=== PATIENT | male | born 1940 | race Caucasian/White ===

== ENCOUNTER 2019-03-06 13:49 | Outpatient (CLI) | payer MEDICARE, OTHER | END 2019-03-06 13:50 | disposition critical access hospital (66) | LOC: EMS 13:49 | PROVIDERS: ATTEND Surgery | DX: S09.90XA Unspecified injury of head, initial encounter (principal); R41.82 Altered mental status, unspecified; M54.2 Cervicalgia; W10.9XXA Fall (on) (from) unspecified stairs and steps, initial encounter | CPT/HCPCS: A0425; A0429 ==

== ENCOUNTER 2019-03-06 14:33 | Emergency (ER) | payer MEDICARE, OTHER ==
--- NOTE | 2019-03-06 15:18 | CT Report ---
Reason: fall, head injury Procedure Date: 03/06/2019 Accession Number: [id number] / [id number] Procedure: CT - HEAD WO CPT Code: FULL RESULT: EXAM: CT HEAD EXAM DATE: 03/06/2019 03:08 PM. CLINICAL HISTORY: 78-year-old male. Fall, head injury. COMPARISON: None. TECHNIQUE: Multiaxial CT images were obtained from the foramen magnum to the vertex. Reformats: Sagittal and coronal. IV contrast: None. In accordance with CT protocol optimization, one or more of the following dose reduction techniques were utilized for this exam: automated exposure control, adjustment of mA and/or KV based on patient size, or use of iterative reconstructive technique. FINDINGS: Parenchyma: No intraparenchymal hemorrhage. No evidence of mass, midline shift, or CT findings of acute infarction. Laurent-white differentiation is distinct. Diffuse chronic microangiopathic white matter changes are evident. Extraaxial Spaces: Normal for age. No subdural or epidural collections identified. Ventricles: The ventricles and cortical sulci are enlarged, consistent with age-related tissue loss. Sinuses and orbits: Status post bilateral lens replacement surgery. Imaged paranasal sinuses, orbits, and mastoids show no significant abnormality. Bones: No evidence of acute fracture. Large heterogeneous bony calvarial lesion in the right frontoparietal calvarium (series 3 image 29, series 5 image 26), nonspecific, may represent hemangioma. Recommend correlation with chronicity per patient history and prior imaging if available. Other: None. IMPRESSION: 1. Generalized age-related cortical atrophic changes without evidence of acute intracranial abnormality. 2. No evidence of acute fracture. Large heterogeneous bony calvarial lesion in the right frontoparietal calvarium (series 3 image 29, series 5 image 26), nonspecific, may represent hemangioma. Recommend correlation with chronicity per patient history and prior imaging if available. [facility]
--- NOTE | 2019-03-06 15:21 | ED Physician Documentation ---
PD HPI Fall - Stated complaint Stated Complaint: FALL - Chief complaint Chief Complaint: Trauma Hd/Nk - History obtained from History obtained from: Patient, Family, EMS - History of Present Illness Mechanism of injury: Slipped (fell down stairs) Fall distance: Standing position Where injury occurred: Home Timing - onset: How many hours ago (1) Injury(ies) location: Head, Neck Pain level max: 5 Pain level now: 2 Quality of pain: Pain Associated symptoms: AMS ( states he was altered.). No: LOC, Amnesia, Seizures, Ear drainage, Nasal drainage, Neck pain, Weakness, Paresthesias, Dyspnea, Nausea / vomiting, Hematemesis, Abdominal distension Symptoms improve with: Rest Worsens with: Movement, Palpation Contributing factors: No: Anticoagulated, Intoxicated Recently seen: Not recently seen Review of Systems Constitutional: denies: Fever, Chills Cardiac: denies: Chest pain / pressure Respiratory: denies: Cough GI: denies: Abdominal Pain, Nausea, Vomiting Skin: denies: Rash Musculoskeletal: denies: Back pain Neurologic: denies: Focal weakness, Numbness, LOC PD PAST MEDICAL HISTORY - Past Medical History Cardiovascular: Hypertension Endocrine/Autoimmune: HyPOthyroidism GI: GERD : Benign prostate hypertrophy - Present Medications Home Medications: Ambulatory Orders Medication Instructions Recorded Confirmed Allopurinol 200 mg PO DAILY 03/06/19 03/06/19 Aspirin 81 mg PO DAILY 03/06/19 03/06/19 Atorvastatin [Lipitor] 20 mg DAILY 03/06/19 03/06/19 Finasteride 5 mg DAILY 03/06/19 03/06/19 Latanoprost 1 drops DAILY 03/06/19 03/06/19 Levothyroxine Sodium [Synthroid] 75 mcg PO DAILY 03/06/19 03/06/19 Lisinopril 20 mg PO DAILY 03/06/19 03/06/19 Omeprazole 40 mg DAILY 03/06/19 03/06/19 Ranitidine HCl [Zantac] 300 mg PO DAILY 03/06/19 03/06/19 Solifenacin Succinate [Vesicare] 5 mg PO DAILY 03/06/19 03/06/19 Tamsulosin [Flomax] 0.4 mg DAILY 03/06/19 03/06/19 - Allergies Allergies/Adverse Reactions: Allergies Allergy/AdvReac Type Severity Reaction Status Date / Time No Known Drug Allergies Allergy Verified 03/06/19 14:57 - Social History Does the pt smoke?: No Smoking Status: Never smoker PD ED PE NORMAL - Vitals Vital signs reviewed: Yes - General General: Alert and oriented X 3, No acute distress, Well developed/nourished - HEENT HEENT: PERRL, Moist mucous membranes, Pharynx benign - Neck Neck: Supple, no meningeal sign, Other (mild mid c-spine TTP) - Cardiac Cardiac: RRR, Strong equal pulses - Respiratory Respiratory: No respiratory distress, Clear bilaterally - Abdomen Abdomen: Soft, Non tender, Non distended - Back Back: No spinal TTP - Derm Derm: Warm and dry - Extremities Extremities: No deformity, Other (abrasion to the L elbow. also has an abrasion behind the L ear. 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, No motor deficit, No sensory deficit, Normal speech Eye Opening: Spontaneous Motor: Obeys Commands Verbal: Oriented GCS Score: 15 - Psych Psych: Normal mood, Normal affect Results - Vitals Vitals: Vital Signs - 24 hr 03/06/19 03/06/19 03/06/19 14:40 15:21 15:52 Temperature 36.9 C Heart Rate 82 77 78 Respiratory 16 18 16 Rate Blood Pressure 140/70 H 128/64 133/63 H O2 Saturation 98 98 99 Oxygen O2 Source Room air - Rads (name of study) head CT Radiology: Prelim report reviewed, EMP read contemporaneously, See rad report (No acute abnormality) cervical spine CT Radiology: Prelim report reviewed, EMP read contemporaneously, See rad report (No acute abnormality) PD MEDICAL DECISION MAKING - ED course Complexity details: reviewed results, re-evaluated patient, considered differential, d/w patient, d/w family ED course: Wounds were cleansed and bandaged. No acute radiographic findings. Ambulating well. Declines pain medication here for home. Head injury instructions given at bedside warnings of infection and instructions on wound care given at bedside. Also counseled on how to minimize scarring. Patient and family counseled regarding signs and symptoms for which I believe and urgent re- evaluation would be necessary. Patient with good understanding of and agreement to plan and is comfortable going home at this time This document was made in part using voice recognition software. While efforts are made to proofread this document, sound alike and grammatical errors may occur. Departure - Departure Disposition: 01 Home, Self Care Clinical Impression: Skin abrasion Fall Qualifiers: Encounter type: initial encounter Qualified Code(s): W19.XXXA - Unspecified f all, initial encounter Head injury Qualifiers: Encounter type: initial encounter Qualified Code(s): S09.90XA - Unspecified injury of head, initial encounter Condition: Good Instructions: ED Head Injury Closed, ED Avulsion Dermal Follow-Up: Isauro La MD [Primary Care Provider] - Within 1 week Comments: Return if you worsen. Keep the wounds clean. Return especially for redness, swelling or drainage from the wound. Discharge Date/Time: 03/06/19 15:53
--- NOTE | 2019-03-06 15:27 | CT Report ---
Reason: fall, neck pain Procedure Date: 03/06/2019 Accession Number: [id number] / [id number] Procedure: CT - CERVICAL SPINE WO CPT Code: FULL RESULT: EXAM: CT CERVICAL SPINE WITHOUT CONTRAST DATE: 03/06/2019 03:08 PM. HISTORY: 78-year-old male. Fall, neck pain. COMPARISONS: None. TECHNIQUE: Thin-section axial images were acquired of the cervical spine without contrast. Post-processing: Coronal and sagittal reformats. Other: None. In accordance with CT protocol optimization, one or more of the following dose reduction techniques were utilized for this exam: automated exposure control, adjustment of mA and/or KV based on patient size, or use of iterative reconstructive technique. FINDINGS: Alignment: No scoliosis or spondylolisthesis. Bones: No fracture or bone lesion. Solid bony fusion across the left C2-C3 facet joint. Bulky anterior and lateral osteophytosis. Interspace Levels/Facets: C1-C2: Unremarkable. C2-C3: Moderate bilateral facet arthropathy. Moderate left and mild to moderate right foraminal narrowing. No significant central canal narrowing. C3-C4: Severe right and moderate left facet arthropathy. Moderate to severe bilateral foraminal narrowing. No significant central canal narrowing. C4-C5: Moderate to severe bilateral facet arthropathy. Moderate bilateral foraminal narrowing. No significant central canal narrowing. C5-C6: Moderate disk height loss. Small posterior disk osteophyte complex. Moderate bilateral uncovertebral spurring. Mild central canal narrowing. Moderate to severe bilateral foraminal narrowing. C6-C7: Moderate disk height loss. Moderate bilateral uncovertebral spurring. Moderate bilateral facet arthropathy. Mild central canal narrowing. Moderate to severe left and mild right foraminal narrowing. C7-T1: Unremarkable. Musculature: Normal. No fatty atrophy. Other: The paravertebral and prevertebral soft tissues are unremarkable. The lung apices are clear. IMPRESSION: 1. No evidence of acute fracture or malalignment. No prevertebral soft tissue swelling. 2. Moderate multilevel degenerative spondylosis, as detailed above. [facility]
[2019-03-06 15:53] VITALS: BP 133/63
== END 2019-03-06 15:53 | disposition home or self-care (01) ==
LOC: ED 14:33
DX: S09.90XA Unspecified injury of head, initial encounter (principal); S50.312A Abrasion of left elbow, initial encounter; S00.412A Abrasion of left ear, initial encounter; W10.9XXA Fall (on) (from) unspecified stairs and steps, initial encounter; Y92.009 Unspecified place in unspecified non-institutional (private) residence as the place of occurrence of the external cause; M47.812 Spondylosis without myelopathy or radiculopathy, cervical region; I10 Essential (primary) hypertension; Z79.82 Long term (current) use of aspirin
CPT/HCPCS: 70450; 72125; 99282; 99284